=== PATIENT | male | born 1995 | race Caucasian/White ===

== ENCOUNTER 2024-07-03 22:12 | Emergency (ER) | payer OTHER ==
[~2024-07-03] VITALS: Ht 160 cm; Wt 72.6 kg
[2024-07-04 00:13] VITALS: TEMP 98
[2024-07-04] MEDS ORDERED: FLUORESCEIN SODIUM OPHTH 1 EA STRIP ONE (01:23)
[2024-07-04] MEDS ORDERED: TETRAcaine 5 ML BOTTLE ONE (01:24)
[2024-07-04] MEDS: TETRACAINE HCL 0.5% OPHTALMIC 15 ML BOTTLE OP ONE (01:27)
[2024-07-04] MEDS: FLUORESCEIN SODIUM OPHTH 1 EA STRIP OP ONE (01:27)
[2024-07-04] MEDS: KETOROLAC TROMETHAMINE INJ 30 MG/ML VIAL IM ONE (02:02)
[2024-07-04] MEDS ORDERED: KETOROLAC TROMETHAMINE INJ 30 MG/ML VIAL ONE (02:02)
[2024-07-04] MEDS ORDERED: CIPR5DRO18 RIGHTEYE (05:02)
[2024-07-04 05:20] VITALS: BP 144/86; O2SAT 98
== END 2024-07-04 05:20 | disposition home or self-care (01) ==
LOC: ER 22:18
DX: S05.01XA Injury of conjunctiva and corneal abrasion without foreign body, right eye, initial encounter (principal); W44.8XXA Other foreign body entering into or through a natural orifice, initial encounter; Y92.89 Other specified places as the place of occurrence of the external cause; Y93.G1 Activity, food preparation and clean up; Y99.0 Civilian activity done for income or pay
CPT/HCPCS: 99285; 70480; 96372; J1885